=== PATIENT | female | born 1980 | race Caucasian/White ===

== ENCOUNTER → 2016-10-14 | Outpatient (CLI) | payer OTHER ==
[~2016-10-14] MED LIST: PRENTAB26 PO
[2016-10-14 13:45] LABS: BASO % 0.6 %; BASO ABS # 0.04 K/uL (0-0.2); COMPLETE YES; EOS % 2.1 %; HEMATOCRIT 43.1 % (37-47); IG% 0.6 %; LYMPH % 28.3 %; LYMPH ABS # 1.98 K/uL (1.2-3.4); MEAN CELL VOLUME 85.3 fL (80-100); MEAN CORPUSCULAR HEMOGLOBIN 28.5 pg (25-34); MEAN CORPUSCULAR HGB CONC 33.4 g/dl (32-36); MONO % 7.3 %; NEUT % 61.1 %; PLATELET COUNT 212 K/uL (130-400); RED BLOOD COUNT 5.05 M/uL (4.2-5.4); WHITE BLOOD COUNT 6.99 K/uL (4.8-10.8)
[2016-10-14 14:10] LABS: ALKALINE PHOSPHATASE 73 U/L (45-117); ALT/SGPT 22 U/L (12-78); AMYLASE 70 U/L (25-115); BLOOD UREA NITROGEN 11 mg/dl (7-18); BUN/CREATININE RATIO 15.4 (10-20); CALCIUM 9.2 mg/dl (8.5-10.1); CARBON DIOXIDE 28 mmol/L (21-32); CHLORIDE 103 mmol/L (98-107); CREATININE 0.71 mg/dl (0.60-1.20); GLUCOSE 95 mg/dl (70-99); POTASSIUM 3.8 mmol/L (3.5-5.1); SODIUM 139 mmol/L (136-145)
[2016-10-14 14:20] LABS: AST/SGOT 9 U/L (15-37)
== END | disposition home or self-care (01) ==
LOC: C.LABMFLN 10:08
PROVIDERS: ATTEND Family Medicine
DX: R10.11 Right upper quadrant pain (principal); R63.5 Abnormal weight gain

== ENCOUNTER → 2016-10-21 | Outpatient (CLI) | payer OTHER ==
--- NOTE | 2016-10-21 11:45 | DIAGNOSTIC IMAGING REPORT ---
ABDOMINAL ULTRASOUND, RIGHT UPPER QUADRANT HISTORY: Pain. Nausea. R10.11 Abdominal pain, RUQ (right upper quadrant. COMPARISON: None. FINDINGS: Pancreas: Unremarkable Liver: Unremarkable. Gallbladder: No gallbladder wall thickening. No gallstones. CBD: 4 mm Right kidney: No hydronephrosis. IMPRESSION: No significant abnormality identified within the within the right upper quadrant. Electronically signed by: Andrey Myers M.D. 10/21/2016 11:43 AM Dictated Date/Time: 10/21/2016 11:43 AM
== END | disposition home or self-care (01) ==
LOC: C.ULTRBC 11:13
PROVIDERS: ATTEND Family Medicine
DX: R10.11 Right upper quadrant pain (principal)

== ENCOUNTER 2020-01-27 14:41 | Inpatient (IN) ==
--- OUTSIDE RECORDS SUMMARY | 2020-01-27 14:47 | External Medical Summary | Continuity of Care Document ---
:1980 Author Name Marla Schofield Address Unavailable Unavailable , Care Team Providers Name Role Phone Unavailable Unavailable Unavailable Samantha Schofield Unavailable [email or web address] M.[email or web address]. Unavailable Unavailable Unavailable Unavailable Unavailable Problems Active medical history not documented Allergies and Adverse Reactions Biaxin TABS (Allergy) Medications Multi-Vitamins Oral Tablet; TAKE 1 TABLET DAILYChandu Choi Start: 14-Oct-2016 Refills: 0 Omeprazole 20 MG Oral Capsule Delayed Release; TAKE 1 CAPSULE BY MOUTH DAILY Chandu Singh Start: 16-Feb-2017 Quantity: 30 Refills: 5 Procedures Procedures not documented Immunizations Influenza On: 03-May-2014 Influenza On: 04-May-2015 Family History Grandmother Family history of diabetes mellitus (V18.0) (Z83.3) Status: Active Grandfather Family history of cardiac disorder (V17.49) (Z82.49) Status: Active Social History - Smoking Status Never smoked tobacco Plan of Treatment Planned Observations Planned Goals not documented Results No Known Results Results not documented
[2020-01-27 15:18] LABS: Basophils # (auto) 0.03 K/uL (0-0.2); Basophils % (auto) 0.4 %; Eosinophils # (auto) 0.05 K/uL (0-0.5); Eosinophils % (auto) 0.6 %; Hematocrit (blood only) 36.8 % (37-47); Hemoglobin 12.3 g/dL (12.0-16.0); Immature Granulocytes # (auto) 0.03 K/uL (0.00-0.02); Immature Granulocytes % (auto) 0.4 %; Lymphocytes # (auto) 1.43 K/uL (1.2-3.4); Lymphocytes % (auto) 17.2 %; Mean Corpuscular Hemoglobin 28.9 pg (25-34); Mean Corpuscular Volume 86.4 fL (80-100); Mean Platelet Volume 11.9 fL (7.4-10.4); Monocytes # (auto) 0.63 K/uL (0.11-0.59); Monocytes % (auto) 7.6 %; Neutrophils # (auto) 6.14 K/uL (1.4-6.5); Neutrophils % (auto) 73.8 %; Platelet Count 154 K/uL (130-400); RDW Coefficient of Variation 14.7 % (11.5-14.5); RDW Standard Deviation 45.5 fL (36.4-46.3); Red Blood Count 4.26 M/uL (4.2-5.4); White Blood Count 8.31 K/uL (4.8-10.8)
[2020-01-27 15:41] LABS: Alanine Aminotransferase 17 U/L (12-78); Albumin Level 2.5 gm/dl (3.4-5.0); Aspartate Aminotransferase 17 U/L (15-37); BUN Creatinine Ratio 12.9 (10-20); Bilirubin Direct < 0.1 mg/dl (0-0.2); Blood Urea Nitrogen 11 mg/dl (7-18); Calcium 9.2 mg/dl (8.5-10.1); Carbon Dioxide 22 mmol/L (21-32); Chloride 108 mmol/L (98-107); Creatinine Clr Calc Pharmacy 128.2 ml/min; Est GFR (African American) 103.7; Est GFR (Non-African American) 89.5; Glucose 104 mg/dl (70-99); Potassium 4.2 mmol/L (3.5-5.1); Sodium 138 mmol/L (136-145); Uric Acid 6.7 mg/dl (2.6-7.2)
[2020-01-27 15:44] LABS: Albumin Globulin Ratio 0.6 (0.9-2); Alkaline Phosphatase 131 U/L (45-117); Bilirubin,Total 0.2 mg/dl (0.2-1); Globulin 4.5 gm/dl (2.5-4.0)
[2020-01-27 16:12] LABS: Protein Creatinine Ratio Urine 0.5 (0-0.2); Total Protein Urine Random 144.8 mg/dl (0-11.9)
[2020-01-27 16:15] LABS: Mean Corpuscular Hgb Conc 33.4 g/dL (32-36)
[2020-01-27] MEDS ORDERED: OXYTOCIN 30 UNITS/500 ML BAG IV PRN (16:52)
--- NOTE | 2020-01-27 17:01 | Obstetrical Progress Note ---
Date of Service January 27, 2020 Subjective Admit Note 39 F P1011 at 37.2 weeks admitted from the office with elevated BP and mild headache. BP 143/79. Urine protein/creatinine ration 0.5. GBS is negative. FHT CAt 1. Will plan to keep for induction of labor. Results & Data ([facility]) Vital Signs (Past 12 Hours) Vital Signs Temp Pulse Resp BP 01/27/20 16:50 80 143/79 H 01/27/20 16:40 75 137/75 01/27/20 16:30 73 133/70 01/27/20 16:20 74 133/73 01/27/20 16:10 69 137/78 01/27/20 16:00 82 137/77 01/27/20 15:50 83 132/71 01/27/20 15:40 80 141/73 H 01/27/20 15:30 77 143/75 H 01/27/20 15:20 85 147/75 H 01/27/20 15:10 100 H 166/116 H 01/27/20 14:57 96 H 164/113 H 01/27/20 14:51 94 H 155/105 H 01/27/20 14:46 36.7 C 94 H 18 155/105 H
[2020-01-27] MEDS ORDERED: DINOPROSTONE 10 MG INSERT PV ONE (17:15)
--- NOTE | 2020-01-27 17:48 | Obstetrical Progress Note ---
Date of Service January 27, 2020 Assessment & Plan Admission and Anticipated Discharge Date Admission Date: January 27, 2020 Physical Exam Physical Exam: Cervidil placed vaginally, FHT Cat 1. Genitourinary: Manual OB Exam: + cervical dilation fingertip, + cervical effacement 50% and + station high OB Exam Monitor Tracing: + external FHT monitor used, + external uterine monitor used and + category I Results & Data ([facility]) Vital Signs (Past 12 Hours) Vital Signs Temp Pulse Resp BP 01/27/20 17:41 84 180/92 H 01/27/20 17:30 86 172/94 H 01/27/20 17:20 85 177/102 H 01/27/20 17:10 77 188/102 H 01/27/20 17:05 83 186/106 H 01/27/20 16:50 80 143/79 H 01/27/20 16:40 75 137/75 01/27/20 16:30 73 133/70 01/27/20 16:20 74 133/73 01/27/20 16:10 69 137/78 01/27/20 16:00 82 137/77 01/27/20 15:50 83 132/71 01/27/20 15:40 80 141/73 H 01/27/20 15:30 77 143/75 H 01/27/20 15:20 85 147/75 H 01/27/20 15:10 100 H 166/116 H 01/27/20 14:57 96 H 164/113 H 01/27/20 14:51 94 H 155/105 H 01/27/20 14:46 36.7 C 94 H 18 155/105 H
[2020-01-27] MEDS ORDERED: ACETAMINOPHEN 500 MG TAB PO PRN (18:30)
[2020-01-28] MEDS ORDERED: BUTORPHANOL TARTRATE 1 MG/ML VIAL IV PRN ×2 (00:02→09:20)
[2020-01-28] MEDS ORDERED: OXYTOCIN 30 UNITS/500 ML BAG IV PRN (09:15)
--- NOTE | 2020-01-28 09:15 | Obstetrical Progress Note ---
Date of Service January 28, 2020 Assessment & Plan Admission and Anticipated Discharge Date Admission Date: January 27, 2020 Subjective Pt doing well Met pt and spouse Reviewed History and PNC FHR; CAT 1 Ctx; Minimal VE;1/thick/post Lopez bulb placed w/o difficulty Lopez filled with 30 cc will start Pitocin Results & Data ([facility]) Vital Signs (Past 12 Hours) Vital Signs Temp Pulse Resp BP Pulse Ox 01/28/20 07:06 36.6 C 74 20 148/79 H 01/28/20 05:48 75 139/85 01/28/20 03:48 36.6 C 76 178/88 H 01/28/20 03:46 81 98 01/28/20 03:41 74 97 01/28/20 03:36 79 96 01/28/20 03:31 83 96 01/28/20 03:26 85 96 01/28/20 03:21 69 96 01/28/20 03:16 75 96 01/28/20 03:11 74 96 01/28/20 03:06 72 96 01/28/20 03:01 74 96 01/28/20 02:56 72 96 01/28/20 02:51 81 95 01/28/20 02:47 75 94 01/28/20 02:46 74 96 01/28/20 02:43 74 165/98 H 01/28/20 02:08 71 152/84 H 01/27/20 23:37 36.4 C L 01/27/20 23:36 67 147/82 H
[2020-01-28] MEDS: ACETAMINOPHEN 500 MG TAB PO PRN ×2 (09:34→20:44)
[2020-01-28] MEDS: LACTATED RINGER'S 1,000 ML IV PRN ×4 (09:36→23:05)
[2020-01-28] MEDS ORDERED: BUPIVACAINE 0.25% 30 ML VIAL ONE (11:26)
[2020-01-28] MEDS ORDERED: fentaNYL citrate 100 MCG/2 ML VIAL ONE (11:26)
[2020-01-28] MEDS ORDERED: ePHEDrine sulfate 50 MG/ML AMP ONE (11:26)
[2020-01-28] MEDS ORDERED: fentaNYL 2MCG/ML ROPIV 1.25MG/ML 100 ML BAG EPI ONE (11:27)
[2020-01-28] MEDS: LABETALOL HCL 200 MG TAB PO SCH ×2 (12:27→20:44)
[2020-01-28] MEDS ORDERED: ePHEDrine sulfate 50 MG/ML AMP IV PRN (13:58)
[2020-01-28] MEDS ORDERED: NALOXONE HCL 1 MG in SODIUM CHLORIDE 0.9% 1000ML 1,000 ML IV PRN (13:58)
[2020-01-28] MEDS ORDERED: NALBUPHINE HCL INJ 10 MG/ML AMP IV PRN (13:58)
[2020-01-28] MEDS ORDERED: DiphenhydrAMINE HCL 50 MG/ML VIAL IV PRN (13:58)
[2020-01-28] MEDS ORDERED: fentaNYL 2MCG/ML ROPIV 1.25MG/ML 100 ML BAG EPI PRN (13:58)
[2020-01-28] MEDS ORDERED: ONDANSETRON INJ 2 MG/ML 2 ML VIAL IV PRN (13:58)
[2020-01-28] MEDS ORDERED: NALOXONE HCL 0.4 MG/1 ML VIAL/CARP IV PRN (13:58)
--- NOTE | 2020-01-28 13:59 | Anesthesiology Consultation ---
Date of Service January 28, 2020 Assessment & Plan (1) Encounter for pre-operative examination: Chart Review Chart Review: Patient NOT seen in Pre Admission Testing and Acceptable Risk for Labor Epidural Consults Requested none History Height/Weight Height: 5 ft 9 in Weight: 121.563 kg Allergies Allergy/AdvReac Type Severity Reaction Status Date / Time clarithromycin Allergy Mild GI SYMPTOMS Verified 10/27/11 20:37 Medications Home Medications Medication Instructions Recorded Confirmed Last Taken vit no.[id number] 1 tab PO DAILY 01/27/20 01/27/20 01/26/20 21:00 [ Vitamin] Active Medications Generic Name Dose Route Start Last Admin Trade Name Freq PRN Reason Stop Dose Admin Acetaminophen 500 mg 01/27/20 18:30 01/27/20 18:41 Tylenol PO 02/26/20 18:29 500 mg Q4H PRN Administration Fever or headache Acetaminophen 1,000 mg 01/28/20 09:18 01/28/20 09:34 Tylenol PO 02/27/20 09:17 1,000 mg Q6H PRN Administration Moderate Pain Butorphanol Tartrate 1 mg 01/28/20 00:02 01/28/20 02:36 Stadol IV 02/27/20 00:01 1 mg Q2H PRN Administration Pain Butorphanol Tartrate 1 mg 01/28/20 09:20 01/28/20 10:38 Stadol IV 02/27/20 09:19 1 mg Q4 PRN Administration Pain Lactated Ringer's 1,000 mls @ 125 mls/hr 01/27/20 16:52 01/28/20 13:46 Lr IV 01/29/20 16:51 999 mls/hr .Q8H PRN Infusion L&D Protocol Protocol Oxytocin 30 units in 500 mls @ 10 mls/hr 01/28/20 09:15 01/28/20 13:46 Pitocin IV 01/30/20 09:14 0.6 units/hr .Q24H PRN 10 mls/hr Labor Induction/Augmentation Titration Protocol 0.6 UNITS/HR Labetalol HCl 200 mg 01/28/20 11:25 01/28/20 12:27 Normodyne PO 02/27/20 11:24 200 mg BID MIRYAM Administration Past Medical History healthy Exercise / Class Metabolic Activity II 4-5 Yardwork/Stairs/Walk up hill Past Surgical History no prior surgeries Past Anesthesia History No Hx of Anesthesia Complications and No Family Hx of Anesthesia Complications History of PONV No Hx of PONV and No Hx of Motion Sickness Social History Smoking Status: Never smoker Do You Dip or Chew Tobacco: No Hx Alcohol Use: No Hx Substance Use: No Physical Exam Vital Signs Last Vital Signs Temp 36.7 C 01/28/20 11:04 Pulse 98 H 01/28/20 14:31 Resp 20 01/28/20 11:50 BP 150/101 H 01/28/20 14:31 Pulse Ox 96 01/28/20 14:27 Testing Laboratory Results 01/27/20 15:06 01/27/20 15:06
--- NOTE | 2020-01-28 19:57 | Obstetrical Progress Note ---
Date of Service January 28, 2020 Assessment & Plan Admission and Anticipated Discharge Date Admission Date: January 27, 2020 Subjective Pt doing well Pit. 20Mu FHR' CAT 1 CTX. 2-3mins VE; 3/50/-3 SROM w/amnio. hook- Clear Results & Data ([facility]) Vital Signs (Past 12 Hours) Vital Signs Temp Pulse Resp BP Pulse Ox 01/28/20 19:47 82 98 01/28/20 19:44 72 136/74 01/28/20 19:42 79 98 01/28/20 19:37 74 97 01/28/20 19:32 76 98 01/28/20 19:29 72 153/78 H 01/28/20 19:27 80 97 01/28/20 19:22 82 98 01/28/20 19:17 77 97 01/28/20 19:14 75 138/79 01/28/20 19:12 72 97 01/28/20 19:07 75 98 01/28/20 19:04 36.7 C 01/28/20 19:02 74 98 01/28/20 18:58 73 119/70 01/28/20 18:57 71 97 01/28/20 18:52 77 96 01/28/20 18:47 76 98 01/28/20 18:43 87 124/69 01/28/20 18:42 95 H 95 01/28/20 18:37 74 96 01/28/20 18:32 71 95 01/28/20 18:28 72 116/67 01/28/20 18:27 71 97 01/28/20 18:22 77 97 01/28/20 18:17 76 96 01/28/20 18:13 79 119/75 01/28/20 18:12 78 97 01/28/20 18:07 76 98 01/28/20 18:02 77 97 01/28/20 17:59 69 16 119/68 01/28/20 17:57 73 98 01/28/20 17:52 99 H 98 01/28/20 17:47 90 96 01/28/20 17:43 76 106/57 L 01/28/20 17:42 87 96 01/28/20 17:37 92 H 96 01/28/20 17:32 79 96 01/28/20 17:28 74 16 137/88 01/28/20 17:27 73 96 01/28/20 17:22 73 96 01/28/20 17:17 81 97 01/28/20 17:13 77 18 134/87 01/28/20 17:12 73 98 01/28/20 17:07 99 H 97 01/28/20 17:02 96 H 95 01/28/20 16:59 69 139/84 01/28/20 16:57 91 H 97 01/28/20 16:52 71 97 01/28/20 16:47 80 97 01/28/20 16:43 98 H 91/51 L 01/28/20 16:42 97 H 96 01/28/20 16:37 88 97 01/28/20 16:35 74 94 01/28/20 16:32 66 96 01/28/20 16:30 20 01/28/20 16:28 83 107/57 L 01/28/20 16:27 87 96 01/28/20 16:25 97 H 94 01/28/20 16:22 78 95 01/28/20 16:20 82 94 01/28/20 16:17 67 96 01/28/20 16:13 89 107/71 01/28/20 16:12 83 95 01/28/20 16:10 95 H 94 01/28/20 16:07 86 95 01/28/20 16:02 79 98 01/28/20 16:00 20 01/28/20 15:58 81 105/59 L 01/28/20 15:57 66 95 01/28/20 15:55 70 94 01/28/20 15:52 72 94 01/28/20 15:49 74 94 01/28/20 15:47 69 95 01/28/20 15:44 73 94 01/28/20 15:43 75 106/57 L 01/28/20 15:42 75 94 01/28/20 15:38 74 94 01/28/20 15:37 78 95 01/28/20 15:32 85 94 01/28/20 15:31 70 94 01/28/20 15:30 67 109/57 L 01/28/20 15:27 69 95 01/28/20 15:24 81 94 01/28/20 15:22 76 97 01/28/20 15:18 89 94 01/28/20 15:17 73 95 0626/20 15:12 70 96 01/28/20 15:10 65 20 116/63 01/28/20 15:08 71 111/59 L 94 01/28/20 15:07 75 95 01/28/20 15:06 72 20 120/62 01/28/20 15:04 68 116/59 L 01/28/20 15:02 68 123/62 96 01/28/20 15:00 90 20 145/71 H 01/28/20 14:58 75 130/74 01/28/20 14:57 87 96 01/28/20 14:56 72 118/66 01/28/20 14:54 80 20 127/70 01/28/20 14:52 81 116/71 97 01/28/20 14:50 36.5 C 85 20 120/70 01/28/20 14:48 88 18 131/79 01/28/20 14:47 79 96 01/28/20 14:46 86 18 125/76 01/28/20 14:44 88 18 121/72 01/28/20 14:42 79 18 126/75 96 01/28/20 14:40 74 18 137/76 01/28/20 14:38 74 18 128/78 01/28/20 14:37 76 97 01/28/20 14:36 75 18 133/72 01/28/20 14:34 81 18 127/73 01/28/20 14:32 77 97 01/28/20 14:31 98 H 20 150/101 H 01/28/20 14:27 118 H 96 01/28/20 14:22 96 H 98 01/28/20 14:17 98 H 97 01/28/20 14:12 100 H 97 01/28/20 14:07 89 97 01/28/20 14:02 86 95 01/28/20 13:57 81 97 01/28/20 13:52 89 97 01/28/20 13:45 80 98 01/28/20 13:40 83 96 01/28/20 13:35 95 H 97 01/28/20 13:30 81 98 01/28/20 13:25 75 98 01/28/20 13:20 88 152/93 H 98 01/28/20 13:15 85 98 01/28/20 13:10 84 98 01/28/20 13:05 89 98 01/28/20 12:58 84 98 01/28/20 12:53 82 98 01/28/20 12:51 81 167/88 H 01/28/20 12:48 83 97 01/28/20 12:43 83 98 01/28/20 12:38 83 96 01/28/20 12:33 84 98 01/28/20 12:28 82 98 01/28/20 12:23 87 97 01/28/20 12:20 90 163/98 H 01/28/20 12:18 93 H 98 01/28/20 12:13 86 97 01/28/20 12:08 80 97 01/28/20 12:03 84 97 01/28/20 11:58 90 98 01/28/20 11:53 79 97 01/28/20 11:50 76 20 158/93 H 01/28/20 11:48 89 96 01/28/20 11:43 87 98 01/28/20 11:38 88 97 01/28/20 11:31 89 97 01/28/20 11:26 79 98 01/28/20 11:21 91 H 20 151/94 H 96 01/28/20 11:16 74 97 01/28/20 11:11 90 96 01/28/20 11:06 84 96 01/28/20 11:04 36.7 C 20 01/28/20 11:01 73 95 01/28/20 10:56 79 96 01/28/20 10:51 74 95 01/28/20 10:49 74 154/85 H 01/28/20 10:46 74 96 01/28/20 10:41 77 97 01/28/20 10:38 80 20 165/93 H 01/28/20 10:21 73 18 161/93 H 01/28/20 09:50 85 18 163/104 H 01/28/20 09:18 81 166/101 H
[2020-01-29] MEDS ORDERED: miSOPROStoL 200 MCG TAB ONE (01:27)
[2020-01-29] MEDS ORDERED: HYDROCORTISONE ACETATE 25 MG SUPP PR PRN (01:38)
[2020-01-29] MEDS ORDERED: OXYTOCIN 30 UNITS/500 ML BAG IV PRN (01:38)
[2020-01-29] MEDS ORDERED: BENZOCAINE 20% AER SPR 82.5 GM CAN EXT PRN (01:38)
[2020-01-29] MEDS ORDERED: bisacodyL 10 MG SUPP PR PRN (01:38)
[2020-01-29] MEDS ORDERED: DIPHTHERIA/TETANUS/PERTUSSIS 0.5 ML SYR/VIAL IM ONE (01:38)
[2020-01-29] MEDS ORDERED: SUPERCREAM 0.870% 15 GM JAR EXT PRN (01:38)
[2020-01-29] MEDS ORDERED: miSOPROStoL 200 MCG TAB PR ONE (01:38)
--- NOTE | 2020-01-29 02:12 | Delivery Summary ---
DATE OF OPERATION: 01/28/2020 The patient delivered a live female in occiput posterior presentation. There was no nuchal cord. was delivered. Cord was clamped and cut after 1 minute. Cord blood was obtained. Placenta spontaneously delivered. Inspection of the perineum shows a second-degree midline laceration which was repaired with 2-0 Vicryl in layers. Has good hemostasis post repair. Rectal exam post repair showed good sphincter tone. No sutures are palpated in the rectum. Estimated blood loss is 450 mL. 's weight and Apgars is pending via pediatrics. Baby and mother are doing well in recovery. All instruments were removed from the vagina and accounted for x2 including sponges, needles and retractors. I attest to the content of the Intraoperative Record and any orders documented therein. Any exception s are noted below.
[2020-01-29] MEDS: IBUPROFEN 600 MG TAB PO PRN ×4 (03:56→20:27)
[2020-01-29] MEDS: ACETAMINOPHEN 325 MG TAB PO PRN ×2 (07:03→23:35)
[2020-01-29] MEDS: DOCUSATE SODIUM 100 MG CAP PO SCH ×2 (07:58→20:26)
[2020-01-29] MEDS: FERROUS SULFATE 325 MG TAB PO SCH (07:58)
[2020-01-29] MEDS: PRENATAL VITAMIN 1 TAB PO SCH (08:01)
[2020-01-29] MEDS: LABETALOL HCL 200 MG TAB PO SCH ×2 (08:55→20:26)
--- NOTE | 2020-01-29 09:22 | Anesthesia Procedure Note ---
Date of Service January 29, 2020 Anesthesia Post Epidural Note Vital Signs Vital Signs: Temp Pulse Resp BP Pulse Ox 97.7 F 77 20 146/89 H 95 01/29/20 07:45 01/29/20 07:45 01/29/20 07:45 01/29/20 07:45 01/29/20 04:10 Pain Intensity Perineal: Pain Intensity: 1 Notes Mental Status: alert / awake / arousable and participated in evaluation Nausea / Vomiting: adequately controlled Pain: adequately controlled Airway Patency, RR, SpO2: stable & adequate BP & HR: stable & adequate Hydration State: stable & adequate Neuraxial Anesthesia: was administered and sensory block is resolving Anesthetic Complications: no major complications apparent and Pt Satisfied with anesthetic care Epidural: Removed without complications and With tip intact
[2020-01-30] MEDS: IBUPROFEN 600 MG TAB PO PRN (03:40)
[2020-01-30 06:13] LABS: Hematocrit (blood only) 32.2 % (37-47); Hemoglobin 10.2 g/dL (12.0-16.0); Mean Corpuscular Hemoglobin 28.4 pg (25-34); Mean Corpuscular Hgb Conc 31.7 g/dL (32-36); Mean Corpuscular Volume 89.7 fL (80-100); Mean Platelet Volume 11.5 fL (7.4-10.4); Platelet Count 130 K/uL (130-400); RDW Coefficient of Variation 15.2 % (11.5-14.5); RDW Standard Deviation 49.2 fL (36.4-46.3); Red Blood Count 3.59 M/uL (4.2-5.4); White Blood Count 9.45 K/uL (4.8-10.8)
[2020-01-30 08:52] VITALS: BP 153/91; PULSE 60; TEMP 97.7; O2SAT 98
[2020-01-30] MEDS: PRENATAL VITAMIN 1 TAB PO SCH (09:21)
[2020-01-30] MEDS: FERROUS SULFATE 325 MG TAB PO SCH (09:21)
[2020-01-30] MEDS: LABETALOL HCL 200 MG TAB PO SCH (09:21)
[2020-01-30] MEDS: DOCUSATE SODIUM 100 MG CAP PO SCH (09:21)
--- NOTE | 2020-01-30 09:47 | Obstetrical Progress Note ---
Date of Service January 30, 2020 Assessment & Plan Admission and Anticipated Discharge Date Admission Date: January 27, 2020 Physical Exam Physical Exam: doing well planning to go home Constitutional: WD/WN, vitals as above comfortable no edema neg May's abdomen soft fundus firm will d/c f/u in 1 week in office next week Results & Data ([facility]) Vital Signs (Past 12 Hours) Vital Signs Temp Pulse Resp BP Pulse Ox 01/30/20 07:40 36.5 C 60 18 153/91 H 98 01/30/20 04:45 36.6 C 69 18 129/83 01/29/20 23:20 36.6 C 74 18 147/82 H
[2020-01-30] MEDS ORDERED: bisacodyL 5 MG TABEC PO SCH (20:00)
== END 2020-01-30 11:50 | disposition home or self-care (01) | DRG 807 ==
LOC: OPB 14:41 → 4S1 14:45 → 4S2 01-29 04:00
DX: O70.1 Second degree perineal laceration during delivery; Z3A.37 37 weeks gestation of pregnancy; Z37.0 Single live birth